=== PATIENT | female | born 1935 | race Caucasian/White ===

== ENCOUNTER 2018-07-17 09:47 | Inpatient (IN) | payer OTHER ==
[~2018-07-17] VITALS: Ht 165.1 cm; Wt 52.2 kg
--- NOTE | ~2018-07-17 | EKG ---
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 : 1935 Requested By: Martha Gilbert Order Number: [id number] MD: Geovani Hinds Measurements Intervals [place] Rate: 81 P: 74 [place]: 178 QRS: -5 QRSD: 92 T: 32 QT: 382 QTc: 444 Interpretive Statements Sinus rhythm Probable left atrial enlargement Compared to ECG 12/14/2016 21:53:06 No significant changes Electronically Signed On 07-19-2018 8:29:48 CDT by Geovani Hinds [email or web address] <ELECTRONICALLY SIGNED> By: Geovani Hinds MD, [facility] 07/19/18 0829 130 130 Geovani Hinds MD, [facility] /EPI
[~2018-07-17 09:47] MED LIST: AZITHROMYCIN 2250 MG PO; CALCIUM 600 +1 EAC1 PO; HYDROCHLOROTHIA25 M1 PO; POTASSIUM20 PO
[2018-07-17 10:08] VITALS: BP 167/87
[2018-07-17 11:10] LABS: ABSOLUTE NEUTROPHILS 6.3 thou/uL (1.4-8.2); BASOPHILS 0.4 % (0.0-2.0); EOSINOPHILS 0.2 % (0.0-3.0); HEMATOCRIT 43.3 % (37.0-47.0); HEMOGLOBIN 15.2 gm/dL (12.0-15.0); LYMPHOCYTES 10.7 % (24.0-44.0); MCH 31.3 pg (26.0-34.0); MCHC 35.1 g/dL (28.0-37.0); MCV 89.1 fL (80.0-100.0); MONOCYTES 5.1 % (1.0-8.0); PLATELET COUNT 264 thou/uL (150-400); POLYS 83.6 % (36.0-66.0); RBC 4.85 mil/uL (4.20-5.00); RDW 12.7 % (10.5-14.5); WBC 7.5 thou/uL (4.0-11.0)
[2018-07-17 11:24] LABS: CALCIUM 9.5 mg/dL (8.5-10.1)
[2018-07-17 11:29] LABS: ALBUMIN 4.3 g/dL (3.4-5.0); TOTAL BILIRUBIN 0.5 mg/dL (<0.1-1.0); TOTAL PROTEIN 8.5 g/dL (6.4-8.2)
[2018-07-17 12:09] LABS: URINE BILIRUBIN NEGATIVE (Negative); URINE BLOOD TRACE (Negative); URINE CLARITY CLEAR; URINE COLOR YELLOW; URINE GLUCOSE-RANDOM* NEGATIVE (Negative); URINE KETONES 1+ (Negative); URINE LEUKOCYTES-REFLEX NEGATIVE (Negative); URINE NITRITE-REFLEX NEGATIVE (Negative); URINE PROTEIN (DIPSTICK) NEGATIVE (Negative); URINE SPECIFIC GRAVITY 1.015 (1.005-1.035); URINE UROBILINOGEN 0.2 E.U./dl (0.2-1.0)
[2018-07-17 13:45] VITALS: BP 140/70
[2018-07-17 14:09] VITALS: BP 146/74
[2018-07-17 14:21] LABS: TROPONIN-I <0.06 ng/mL (<0.06)
[2018-07-17 16:43] VITALS: BP 137/65
[2018-07-17 19:44] VITALS: BP 168/68
[2018-07-18 04:24] VITALS: BP 136/69
[2018-07-18 05:11] LABS: HEMATOCRIT 39.2 % (37.0-47.0); MCH 30.4 pg (26.0-34.0); MCHC 33.4 g/dL (28.0-37.0); MCV 90.9 fL (80.0-100.0); RBC 4.31 mil/uL (4.20-5.00); RDW 13.3 % (10.5-14.5); WBC 4.8 thou/uL (4.0-11.0)
[2018-07-18 05:13] LABS: HEMOGLOBIN 13.1 gm/dL (12.0-15.0)
[2018-07-18 05:25] LABS: CREATININE 0.7 mg/dL (0.6-1.0)
[2018-07-18 05:27] LABS: POTASSIUM 4.1 mmol/L (3.5-5.1)
[2018-07-18 07:51] VITALS: BP 131/56
[2018-07-19 05:07] VITALS: BP 142/59
[2018-07-19 07:20] VITALS: BP 139/54
[2018-07-19 16:34] VITALS: BP 145/63
[2018-07-19 16:35] VITALS: BP 145/63
[2018-07-19 19:34] VITALS: BP 134/64
[2018-07-20 08:04] LABS: ABSOLUTE NEUTROPHILS 3.3 thou/uL (1.4-8.2); BASOPHILS 1.2 % (0.0-2.0); EOSINOPHILS 5.5 % (0.0-3.0); HEMATOCRIT 37.7 % (37.0-47.0); HEMOGLOBIN 12.9 gm/dL (12.0-15.0); LYMPHOCYTES 28.2 % (24.0-44.0); MCH 31.2 pg (26.0-34.0); MCHC 34.2 g/dL (28.0-37.0); MCV 91.3 fL (80.0-100.0); MONOCYTES 9.8 % (1.0-8.0); PLATELET COUNT 217 thou/uL (150-400); POLYS 55.3 % (36.0-66.0); RBC 4.13 mil/uL (4.20-5.00); RDW 13.4 % (10.5-14.5); WBC 5.9 thou/uL (4.0-11.0)
[2018-07-20 08:07] VITALS: BP 154/81
[2018-07-20 08:26] LABS: CALCIUM 8.5 mg/dL (8.5-10.1); CREATININE 0.8 mg/dL (0.6-1.0); MAGNESIUM 2.1 mg/dL (1.8-2.4); POTASSIUM 3.9 mmol/L (3.5-5.1)
[2018-07-20 09:04] LABS: FOLIC ACID 15.9 ng/mL (8.6-58.9)
[2018-07-20 19:27] VITALS: BP 151/82
[2018-07-21 06:00] VITALS: BP 151/83
[2018-07-21 07:20] VITALS: BP 148/72
[2018-07-21 20:00] VITALS: BP 129/53
[2018-07-22 07:33] LABS: HEMATOCRIT 37.4 % (37.0-47.0); HEMOGLOBIN 12.3 gm/dL (12.0-15.0); MCH 30.3 pg (26.0-34.0); RBC 4.06 mil/uL (4.20-5.00); RDW 13.7 % (10.5-14.5)
[2018-07-22 07:43] LABS: CALCIUM 8.9 mg/dL (8.5-10.1); CREATININE 0.7 mg/dL (0.6-1.0); POTASSIUM 4.5 mmol/L (3.5-5.1)
[2018-07-22 08:14] VITALS: BP 146/71
[2018-07-22] MEDS ORDERED: MIRALAX17 GM PO (12:44)
[2018-07-22 13:21] VITALS: BP 146/71
== END 2018-07-22 14:05 | disposition home or self-care (01) | DRG 391 ==
LOC: ER 09:47 → 4E 12:58 → EROBS 12:58 → 4E 14:48 → SICU 07-19 18:00 → ENTRNSPT 07-22 13:52 → EDTRNSPTSTS 07-22 13:57 → SICU 07-22 14:05
PROVIDERS: Emergency Medicine; Hospitalist; Nurse Practitioner Family
PROC: 0DJD8ZZ Inspection of Lower Intestinal Tract, Via Natural or Artificial Opening Endoscopic (ICD-10-PCS; principal; 2018-07-21)
PROC: 0DJ08ZZ Inspection of Upper Intestinal Tract, Via Natural or Artificial Opening Endoscopic (ICD-10-PCS; principal; 2018-07-21)
DX: K57.12 Diverticulitis of small intestine without perforation or abscess without bleeding (principal); N17.0 Acute kidney failure with tubular necrosis; E43 Unspecified severe protein-calorie malnutrition; E87.1 Hypo-osmolality and hyponatremia; Z68.1 Body mass index [BMI] 19.9 or less, adult; E46 Unspecified protein-calorie malnutrition; I10 Essential (primary) hypertension; K21.9 Gastro-esophageal reflux disease without esophagitis; E86.0 Dehydration; K59.00 Constipation, unspecified; E03.9 Hypothyroidism, unspecified; E87.6 Hypokalemia; M81.0 Age-related osteoporosis without current pathological fracture; K57.30 Diverticulosis of large intestine without perforation or abscess without bleeding; Z79.899 Other long term (current) drug therapy
CPT/HCPCS: 10183; 15002; 62110; 62900; 70005

== ENCOUNTER 2018-11-11 14:03 | Inpatient (IN) | payer OTHER ==
[~2018-11-11] VITALS: Ht 165.1 cm; Wt 45.4 kg
[~2018-11-11 14:03] MED LIST changes: +MIRALAX17 GM PO
[2018-11-11 14:04] VITALS: BP 148/73
[2018-11-11 14:47] LABS: ABSOLUTE NEUTROPHILS 5.7 thou/uL (1.4-8.2); BASOPHILS 0.8 % (0.0-2.0); HEMATOCRIT 39.1 % (37.0-47.0); HEMOGLOBIN 13.3 gm/dL (12.0-15.0); LYMPHOCYTES 19.1 % (24.0-44.0); MCH 30.5 pg (26.0-34.0); MCV 89.9 fL (80.0-100.0); MONOCYTES 8.9 % (1.0-8.0); PLATELET COUNT 316 thou/uL (150-400); POLYS 68.2 % (36.0-66.0); RBC 4.36 mil/uL (4.20-5.00); RDW 13.3 % (10.5-14.5); WBC 8.3 thou/uL (4.0-11.0)
[2018-11-11] MEDS ORDERED: ASPIR 8181 MG PO (14:52)
[2018-11-11 14:53] LABS: ANION GAP 9 mmol/L (7-16); BUN 17 mg/dL (7-18); CALCIUM 10.2 mg/dL (8.5-10.1); CHLORIDE 95 mmol/L (98-107); CO2 28 mmol/L (21-32); CREATININE 0.8 mg/dL (0.6-1.0); GLUCOSE 86 mg/dL (74-106); POTASSIUM 3.4 mmol/L (3.5-5.1); SODIUM 132 mmol/L (136-145)
[2018-11-11] MEDS ORDERED: VITAMIN B-125000 MC2 PO (14:53)
[2018-11-11] MEDS ORDERED: NAMENDA 10 MG T10 MG PO (14:53)
[2018-11-11] MEDS ORDERED: FISH OIL PO (14:54)
[2018-11-11] MEDS ORDERED: CO Q10 50 MG PO (14:54)
[2018-11-11] MEDS ORDERED: VITAMIN C GUMMIE PO (14:55)
[2018-11-11 15:00] LABS: LIPASE 221 U/L (73-393); TROPONIN-I <0.06 ng/mL (<0.06)
--- NOTE | 2018-11-11 15:17 | EKG ---
[address] [address] [place] [address] ELECTROCARDIOGRAM REPORT Name: KEN DUMONT Room #: REG ROSEMARY [place]#: [id number] Admission: 11/11/18 Attend Phys: Discharge: Date of : 37 Report #: [id number] THIS REPORT FOR: //name// 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
[2018-11-11 16:52] VITALS: BP 142/71
[2018-11-11 18:04] VITALS: BP 131/77
[2018-11-11 18:26] VITALS: BP 148/74
--- NOTE | 2018-11-11 19:45 | NUR ---
ASSUMED PATIENT CARE FROM ED. A&OX4. COMPLAINTS OF A HEADACHE AND CHEST PRESSURE. EKG SHOWED SR AND TROPONIN NEGATIVE, NEXT DRAW AT 1999. FAMILY AT BEDSIDE.
[2018-11-11 20:26] VITALS: BP 123/65
[2018-11-12 00:20] VITALS: BP 116/68
[2018-11-12 05:40] VITALS: BP 112/53
[2018-11-12 06:33] LABS: HEMATOCRIT 37.6 % (37.0-47.0); HEMOGLOBIN 12.6 gm/dL (12.0-15.0); MCH 30.3 pg (26.0-34.0); MCHC 33.6 g/dL (28.0-37.0); MCV 90.1 fL (80.0-100.0); RBC 4.17 mil/uL (4.20-5.00); RDW 13.3 % (10.5-14.5); WBC 5.6 thou/uL (4.0-11.0)
[2018-11-12 06:50] LABS: CALCIUM 9.5 mg/dL (8.5-10.1); CREATININE 0.8 mg/dL (0.6-1.0); POTASSIUM 3.8 mmol/L (3.5-5.1)
[2018-11-12 06:57] LABS: CHOLESTEROL 164 mg/dL (<200); HDL CHOLESTEROL 73 mg/dL (>40); LDL CHOLESTEROL 83 mg/dL (<100); TC:HDL 2.2 Ratio (Not establshd); TRIGLYCERIDE 43 mg/dL (<150); TROPONIN-I <0.06 ng/mL (<0.06); VLDL 9 mg/dL (<40)
[2018-11-12 07:40] VITALS: BP 115/62
--- NOTE | 2018-11-12 08:04 | NUR ---
PATIENT IS PROGRESSING IN HER CARE PLAN. VITAL SIGNS STABLE WITH PATIENT HAVING NO COMPLAINTS OF NAUSEA. PATIENT DID COMPLAIN OF PAIN IN THE FORM OF HEADACHE AND MILD CHEST HEAVINESS PRIMARILY AT SHIFT CHANGE. FULLY ORIENTED, PATIENT IS ABLE TO CALL APPROPRIATELY FOR NEEDS. UP TO THE RESTROOM MULTIPLE TIMES WITH ASSISTANCE INCIDENT FREE. PATIENT WAS KEPT NPO AFTER MIDNIGHT IN ANTICIPATION OF TODAYS CARDIAC STRESS TEST. CONTINUE PLAN OF CARE.
--- NOTE | 2018-11-12 08:21 | EKG ---
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 : 1935 Requested By: Dara Young Order Number: [id number] MD: Geovani Hinds Measurements Intervals [place] Rate: 62 P: 62 [place]: 154 QRS: 12 QRSD: 91 T: 38 QT: 413 QTc: 420 Interpretive Statements Sinus rhythm Abnormal R-wave progression, early transition Compared to ECG 11/11/2018 14:15:42 No significant changes Electronically Signed On 11-12-2018 8:20:48 CHILI POWDER MIXER by Geovani Hinds [email or web address] <ELECTRONICALLY SIGNED> By: Geovani Hinds MD, [facility] 11/12/18819 9 9 Geovani Hinds MD, [facility] /EPI
--- NOTE | 2018-11-12 10:26 | 2DMMODE ---
[facility] [place] [address] 2 D/M-MODE ECHOCARDIOGRAM Name: KEN DUMONT Room #: 364-P ADM IN M.R.#: [id number] Admission: 11/11/18 Attend Phys: Isael Shankar MD Discharge: Date of : 37 Date of Service: 11/12/18 1026 Report #: [id number] THIS REPORT FOR: //name// APPROVED REPORT Study performed: 11/12/2018 09:27:11 EXAM: Comprehensive 2D, Doppler, and color-flow Echocardiogram Patient Location: Echo lab Room #: 364 Status: routine BSA: 1.47 HR: 62 bpm BP: 115/62 mmHg Rhythm: Sinus arrhythmia Other Information Study Quality: Adequate/low window Indications Chest Pain 2D Dimensions RVDd: 36.78 mm IVSd: 8.39 (7-11mm) LVOT Diam: 19.28 (18-24mm) LVDd: 38.46 mm PWd: 7.11 (7-11mm) LVDs: 24.78 (25-40mm) Aortic Root: 28.34 mm Volumes Left Atrial Volume (Systole) Single Plane 4CH: 27.39 mL Single Plane 2CH: 20.17 mL LA ESV Index: 18.00 mL/m2 Aortic Valve AoV Peak Todd.: 1.15 m/s AO Peak Gr.: 5.33 mmHg LVOT Max P.28 mmHg LVOT Max V: 0.90 m/s VICTOR HUGO Vmax: 2.29 cm2 Mitral Valve E/A Ratio: 0.8 MV Decel. Time: 278.81 ms MV E Max Todd.: 0.66 m/s [facility] [address] [place] [address] 2 D/M-MODE ECHOCARDIOGRAM Name: KEN DUMONT Room #: 364-P [facility]#: [id number] Admission: 11/11/18 Attend Phys: Isael Shankar MD Discharge: Date of : 37 Date of Service: 11/12/18 1026 Report #: [id number] MV A Todd.: 0.79 m/s MV PHT: 80.86 ms Pulmonary Valve PV Peak Todd.: 0.89 m/s PV Peak Gr.: 3.15 mmHg Pulmonary Vein P Vein S: 0.73 m/s P Vein A: 0.35 m/s P Vein D: 0.38 m/s P Vein A Dur.: 133.8 msec P Vein S/D Ratio: 1.92 Tricuspid Valve TR Peak Todd.: 2.91 m/s RAP Estimate: 5.00 mmHg TR Peak Gr.: 33.98 mmHg PA Pressure: 39.00 mmHg Left Ventricle The left ventricle is normal size. There is normal LV segmental wall motion. There is normal left ventricular wall thickness. Left ventricular systolic function is normal. LVEF is 60-65%. Mild diastolic dysfunction is present (impaired relaxation pattern). Right Ventricle The right ventricle is normal size. The right ventricular systolic function is normal. Atria The left atrium size is normal. The right atrium size is normal. Aortic Valve The aortic valve is normal in structure. No aortic regurgitation is present. There is no aortic valvular stenosis. Mitral Valve The mitral valve is normal in structure. There is no mitral valve regurgitation noted. No evidence of mitral valve stenosis. Tricuspid Valve The tricuspid valve is normal in structure. Moderate tricuspid regurgitation. Estimated PAP is 35-40mmHg. Pulmonic Valve Pulmonic valve is not well visualized. [facility] [address] [place] [address] 2 D/M-MODE ECHOCARDIOGRAM Name: KEN DUMONT Room #: 364-P [facility] IN M.R.#: [id number] Admission: 11/11/18 Attend Phys: Isael Shankar MD Discharge: Date of : 37 Date of Service: 11/12/18 1026 Report #: [id number] Great Vessels The aortic root is normal in size. IVC is normal in size and collapses >50% with inspiration. Pericardium There is no pericardial effusion. <Conclusion> The left ventricle is normal size. LVEF is 60-65%. The aortic valve is normal in structure. The mitral valve is normal in structure. The tricuspid valve is normal in structure. Moderate tricuspid regurgitation. Estimated PAP is 35-40mmHg. Pulmonic valve is not well visualized. There is no pericardial effusion. <ELECTRONICALLY SIGNED> By: Niraj Peng MD 11/12/18 1026 1026 1026 Niraj Peng MD /INF
--- NOTE | 2018-11-12 10:34 | NUR ---
ASSESSMENT: CM REVIEWED CHART AND MET WITH PATIENT AT THE BEDSIDE. PT IS ALERT AND ORIENTED X4. PT WAS ADMITTED DUE TO CHEST PAIN. PT LIVES AT HOME WITH HER DAUGHTER. PT REPORTS THERE ARE TWO STEPS TO ENTER THE HOME WITH NO HANDRAILS AND NO STEPS ONCE INSIDE. PT REPORTS SHE IS VERY INDEPENDENT AND DOES NOT HAVE ANY DME OR THE NEED FOR IT. PT REPORTS SHE HAS NOT HAD HH IN THE PAST. PT REPORTS SHE DOES NOT ANTICIPATE HAVING ANY NEEDS FROM CM PRIOR TO DISCHARGE. CM WILL CONTINUE TO FOLLOW.
[2018-11-12 11:13] VITALS: BP 133/60
[2018-11-12 12:29] VITALS: BP 133/60
--- NOTE | 2018-11-12 14:38 | NUR ---
Assumed care of Pt at 0700. cardiac workup negative. denies chest pain. anticipate d/c orders. pt agreeable with d/c - waiting on transport.
--- NOTE | 2018-11-12 15:29 | NUR ---
ORDER FOR Ji ALMENDAREZ RECEIVED THIS DATE. PT OBSERVED UP IN ROOM AD VERO AND REPORTS PLAN FOR D/C LATER TODAY. PHYSICIAN D/C ORDER IN MEDICAL RECORD. PT DENIES NEED FOR THERAPY SERVICES AT THIS TIME. Ji ALMENDAREZ DEFERRED.
== END 2018-11-12 16:30 | disposition home or self-care (01) | DRG 313 ==
LOC: ER 14:03 → 3W 16:43 → EROBS 16:43 → 3W 18:02
PROVIDERS: Emergency Medicine; Nurse Practitioner; ADMIT Hospitalist
DX: R07.89 Other chest pain (principal); I10 Essential (primary) hypertension; K21.9 Gastro-esophageal reflux disease without esophagitis; Z79.82 Long term (current) use of aspirin; Z79.899 Other long term (current) drug therapy; Z88.8 Allergy status to other drugs, medicaments and biological substances; Z82.49 Family history of ischemic heart disease and other diseases of the circulatory system; Z80.8 Family history of malignant neoplasm of other organs or systems
CPT/HCPCS: 10879

== ENCOUNTER → 2021-08-01 | Outpatient (CLI) | payer OTHER ==
[~2021-08-01] MED LIST changes: +ASPIR 8181 MG PO; +CO Q10 50 MG PO; +FISH OIL PO; +NAMENDA 10 MG T10 MG PO; +VITAMIN B-125000 MC2 PO; +VITAMIN C GUMMIE PO
== END ==
LOC: SJCVC 14:18
PROVIDERS: ATTEND Internal Medicine Cardiovascular Disease
DX: R94.31 Abnormal electrocardiogram [ECG] [EKG] (principal); I49.3 Ventricular premature depolarization; R00.0 Tachycardia, unspecified; I10 Essential (primary) hypertension; E03.9 Hypothyroidism, unspecified; I07.1 Rheumatic tricuspid insufficiency; G30.9 Alzheimer's disease, unspecified; F02.80 Dementia in other diseases classified elsewhere, unspecified severity, without behavioral disturbance, psychotic disturbance, mood disturbance, and anxiety; I42.9 Cardiomyopathy, unspecified; K21.9 Gastro-esophageal reflux disease without esophagitis; M81.0 Age-related osteoporosis without current pathological fracture; Z82.49 Family history of ischemic heart disease and other diseases of the circulatory system; Z88.6 Allergy status to analgesic agent; Z79.82 Long term (current) use of aspirin; Z79.899 Other long term (current) drug therapy